=== PATIENT | male | born 1960 | race Caucasian/White ===

== ENCOUNTER → 2018-03-08 | Outpatient (CLI) | payer OTHER | END | disposition home or self-care (01) | LOC: CFH 10:27 | PROVIDERS: ATTEND Internal Medicine Cardiovascular Disease | DX: I10 Essential (primary) hypertension (principal); Z98.61 Coronary angioplasty status | CPT/HCPCS: 78452; 93017; 93306; A9502 ==

== ENCOUNTER 2018-09-23 05:31 | Inpatient (IN) | payer OTHER ==
[~2018-09-23] VITALS: Ht 172.7 cm; Wt 83.1 kg
[2018-09-23] MEDS ORDERED: SODIUM CHLORIDE FLUSH 10ML SYR IVF ONE (06:00)
[2018-09-23] MEDS ORDERED: SODIUM CHLORIDE 0.9% 1,000 ML IV SCH ×2 (06:00→16:06)
[2018-09-23] MEDS ORDERED: ASPIRIN 81 MG TABLET CHEW PO ONE (06:00)
[2018-09-23] MEDS ORDERED: ASPIRIN 81 MG TABLET CHEW ONE (06:03)
[2018-09-23 06:22] LABS: BASOPHILS # (AUTO) 0.04 x10^3/uL (0-0.1); BASOPHILS % (AUTO) 1 % (0-1); EOSINOPHILS # (AUTO) 0.31 x10^3/uL (0-0.4); EOSINOPHILS % (AUTO) 5 % (1-7); LYMPHOCYTES # (AUTO) 1.58 x10^3/uL (1-3.4); LYMPHOCYTES % (AUTO) 25 % (22-44); MD NO; MEAN CORPUSCULAR VOLUME 97.1 fL (81-97); MEAN PLATELET VOLUME 8.3 fL (7.4-10.4); MONOCYTES # (AUTO) 0.48 x10^3/uL (0.2-0.8); MONOCYTES % (AUTO) 8 % (2-9); NEUTROPHILS # (AUTO) 3.84 x10^3/uL (1.8-6.8); NEUTROPHILS % (AUTO) 62 % (42-75); PLATELET COUNT 222 x10^3/uL (130-400); RED BLOOD COUNT 5.07 x10^6/uL (4.38-5.82); RED CELL DISTRIBUTION WIDTH 13.7 % (9.4-14.8)
[2018-09-23 06:29] LABS: ALANINE AMINOTRANSFERASE 59 U/L (12-78); ANION GAP 6 mmol/L (5-15); CHLORIDE 110 mmol/L (98-107)
[2018-09-23 06:33] LABS: ALKALINE PHOSPHATASE 63 U/L (45-117); BILIRUBIN,TOTAL 0.5 mg/dL (0.2-1.0); CREATININE 1.51 mg/dL (0.7-1.3); TOTAL PROTEIN 7.1 g/dL (6.4-8.2)
[2018-09-23 06:34] LABS: TROPONIN I 0.463 ng/mL (0.000-0.045)
[2018-09-23] MEDS ORDERED: HEPARIN 5,000 UNITS/ML, 1ML ONE (06:44)
[2018-09-23] MEDS ORDERED: HEPARIN 25,000 UNITS/500ML PMX 500 ML ONE (06:44)
[2018-09-23] MEDS: HEPARIN 25,000 UNITS/500ML PMX 500 ML IV PRN ×2 (06:54→16:38)
[2018-09-23] MEDS ORDERED: HEPARIN 5,000 UNITS/ML, 1ML IV ONE (07:00)
[2018-09-23] MEDS ORDERED: LISI-170 PO (07:03)
[2018-09-23] MEDS ORDERED: ASPI-650 PO (07:03)
[2018-09-23] MEDS ORDERED: LEVO100T5 PO (07:03)
[2018-09-23] MEDS ORDERED: ATOR20TA PO (07:03)
[2018-09-23] MEDS ORDERED: VITA1CAP PO (07:03)
[2018-09-23] MEDS ORDERED: Metoprolol PO (07:03)
[2018-09-23 07:04] LABS: FREE T4 (FREE THYROXINE) 1.03 ng/dL (0.76-1.46)
[2018-09-23] MEDS ORDERED: morphine SULFATE 10 MG/ML, 1ML IVPush PRN (07:30)
[2018-09-23] MEDS ORDERED: NITROGLYCERIN 0.4 MG BOTTLE (25 TABS) SL PRN (07:30)
[2018-09-23] MEDS ORDERED: ONDANSETRON 2MG/ML, 2ML IVPush PRN (07:30)
[2018-09-23] MEDS ORDERED: hydrALAzine 20 MG/ML, 1ML IVPush PRN (07:30)
[2018-09-23] MEDS ORDERED: HEPARIN 5,000 UNITS/ML, 1ML IV PRN (07:30)
[2018-09-23] MEDS ORDERED: LORazepam 2 MG/ML, 1ML IVPush PRN (07:30)
[2018-09-23] MEDS: LEVOTHYROXINE 125 MCG TABLET PO SCH (07:38)
[2018-09-23] MEDS: ASPIRIN 81 MG TABLET EC PO SCH (07:38)
[2018-09-23 08:18] VITALS: BP 128/85
[2018-09-23] MEDS: METOPROLOL TARTRATE 25 MG TABLET PO SCH ×2 (08:20→20:38)
[2018-09-23] MEDS: LISINOPRIL 20 MG TABLET PO SCH ×2 (08:22→08:25)
[2018-09-23] MEDS ORDERED: FENTANYL PF 100 MCG/2ML ONE (14:31)
[2018-09-23] MEDS ORDERED: MIDAZOLAM 1 MG/ML, 5ML ONE (14:31)
[2018-09-23] MEDS ORDERED: VERAPAMIL 2.5 MG/ML, 2ML ONE (14:32)
[2018-09-23] MEDS ORDERED: LIDOCAINE 2%, 20ML ONE (14:32)
[2018-09-23] MEDS ORDERED: BIVALIRUDIN 250 MG ONE (14:32)
[2018-09-23 15:34] VITALS: BP 138/83
[2018-09-23 19:18] VITALS: BP 123/79
[2018-09-23] MEDS ORDERED: ACETAMINOPHEN 325 MG TABLET PO ONE (19:30)
[2018-09-23] MEDS: ATORVASTATIN 40 MG TABLET PO SCH (20:52)
[2018-09-24 02:00] VITALS: BP 114/71
[2018-09-24] MEDS: ASPIRIN 81 MG TABLET EC PO SCH (05:42)
[2018-09-24] MEDS: LEVOTHYROXINE 125 MCG TABLET PO SCH (05:42)
[2018-09-24 06:30] VITALS: BP 114/74
[2018-09-24 07:08] LABS: BASOPHILS # (AUTO) 0.06 x10^3/uL (0-0.1); BASOPHILS % (AUTO) 1 % (0-1); EOSINOPHILS # (AUTO) 0.23 x10^3/uL (0-0.4); EOSINOPHILS % (AUTO) 5 % (1-7); LYMPHOCYTES % (AUTO) 29 % (22-44); MD NO; MEAN CORPUSCULAR HGB CONC 33.4 g/dL (33.2-36.2); MEAN CORPUSCULAR VOLUME 95.9 fL (81-97); MEAN PLATELET VOLUME 8.3 fL (7.4-10.4); MONOCYTES # (AUTO) 0.37 x10^3/uL (0.2-0.8); MONOCYTES % (AUTO) 8 % (2-9); NEUTROPHILS # (AUTO) 2.72 x10^3/uL (1.8-6.8); NEUTROPHILS % (AUTO) 57 % (42-75); PLATELET COUNT 179 x10^3/uL (130-400); RED BLOOD COUNT 4.91 x10^6/uL (4.38-5.82); RED CELL DISTRIBUTION WIDTH 13.3 % (9.4-14.8)
[2018-09-24 07:20] LABS: ALANINE AMINOTRANSFERASE 47 U/L (12-78); ALBUMIN 3.3 g/dL (3.4-5.0); ANION GAP 6 mmol/L (5-15); CALCIUM 8.4 mg/dL (8.5-10.1); CHLORIDE 112 mmol/L (98-107)
[2018-09-24 07:24] LABS: ALKALINE PHOSPHATASE 51 U/L (45-117); CHOL/HDL RATIO 3.4; CHOLESTEROL, TOTAL 128 mg/dL (140-239); HDL CHOL % 30 % (26-37); HDL CHOLESTEROL (DIRECT) 38 mg/dL (40-60); LDL CHOLESTEROL,CALCULATED 65 mg/dL (54-169); LDL/HDL RATIO 1.7 (0.5-3.0); TRIGLYCERIDES 127 mg/dL (50-200); VLDL CHOLESTEROL 25 mg/dL (0-25)
[2018-09-24] MEDS: METOPROLOL TARTRATE 25 MG TABLET PO SCH ×2 (09:24→20:20)
[2018-09-24] MEDS: LISINOPRIL 20 MG TABLET PO SCH (09:24)
[2018-09-24] MEDS: SODIUM CHLORIDE 0.9% 1,000 ML IV SCH ×2 (10:57→20:20)
[2018-09-24] MEDS ORDERED: MIDAZOLAM 1 MG/ML, 5ML ONE (14:01)
[2018-09-24] MEDS ORDERED: TICAGRELOR 90 MG TABLET ONE (14:01)
[2018-09-24] MEDS ORDERED: FENTANYL PF 100 MCG/2ML ONE (14:01)
[2018-09-24] MEDS ORDERED: BIVALIRUDIN 250 MG ONE (14:02)
[2018-09-24] MEDS ORDERED: LIDOCAINE 1%, 20ML ONE (14:02)
[2018-09-24] MEDS ORDERED: VERAPAMIL 2.5 MG/ML, 2ML ONE (14:32)
[2018-09-24 14:39] VITALS: BP 118/72
[2018-09-24] MEDS ORDERED: SODIUM CHLORIDE 0.9% 1,000 ML IV SCH (15:17)
[2018-09-24] MEDS ORDERED: BIVALIRUDIN 250 MG in SODIUM CHLORIDE 0.9% 50 ML IV SCH (15:17)
[2018-09-24 19:24] VITALS: BP 148/82
[2018-09-24] MEDS: ATORVASTATIN 40 MG TABLET PO SCH (20:19)
[2018-09-24] MEDS: TICAGRELOR 90 MG TABLET PO SCH (20:19)
[2018-09-25 01:25] VITALS: BP 130/75
[2018-09-25 02:34] VITALS: BP 133/78
[2018-09-25] MEDS: LEVOTHYROXINE 125 MCG TABLET PO SCH (05:41)
[2018-09-25 05:50] LABS: ANION GAP 7 mmol/L (5-15); CALCIUM 8.7 mg/dL (8.5-10.1); CHLORIDE 113 mmol/L (98-107); CREATININE 1.34 mg/dL (0.7-1.3)
[2018-09-25 06:45] VITALS: BP 152/75
[2018-09-25] MEDS: METOPROLOL TARTRATE 25 MG TABLET PO SCH (08:02)
[2018-09-25] MEDS: LISINOPRIL 20 MG TABLET PO SCH (08:02)
[2018-09-25] MEDS: TICAGRELOR 90 MG TABLET PO SCH (08:02)
[2018-09-25] MEDS ORDERED: ASPIRIN 81 MG TABLET EC PO SCH (09:00)
[2018-09-25] MEDS ORDERED: TICA90TA PO (11:42)
[2018-09-25] MEDS ORDERED: ASPI81TA45 PO (11:42)
[2018-09-25] MEDS ORDERED: LISI-170 PO (11:42)
[2018-09-25] MEDS ORDERED: NITR0.4T28 SL (11:42)
[2018-09-25] MEDS ORDERED: ATOR40TA78 PO (11:42)
[2018-09-25] MEDS ORDERED: LEVO125T PO (11:42)
[2018-09-25] MEDS ORDERED: LISINOPRIL 20 MG TABLET PO SCH (21:00)
== END 2018-09-25 13:58 | disposition home or self-care (01) | DRG 247 ==
LOC: ED 06:24 → SUATTDRO 07:02 → EDIP 07:51 → 5SO 08:05 → DCLOUNGE 09-25 13:32
PROVIDERS: ADMIT Internal Medicine; ATTEND Internal Medicine
PROC: 4A023N7 Measurement of Cardiac Sampling and Pressure, Left Heart, Percutaneous Approach (ICD-10-PCS; 2018-09-23)
PROC: B2111ZZ Fluoroscopy of Multiple Coronary Arteries using Low Osmolar Contrast (ICD-10-PCS; 2018-09-23)
PROC: B2151ZZ Fluoroscopy of Left Heart using Low Osmolar Contrast (ICD-10-PCS; 2018-09-23)
PROC: 027034Z Dilation of Coronary Artery, One Artery with Drug-eluting Intraluminal Device, Percutaneous Approach (ICD-10-PCS; principal; 2018-09-24)
DX: I21.4 Non-ST elevation (NSTEMI) myocardial infarction (principal); E03.9 Hypothyroidism, unspecified; E78.5 Hyperlipidemia, unspecified; I10 Essential (primary) hypertension; I25.10 Atherosclerotic heart disease of native coronary artery without angina pectoris; Z86.73 Personal history of transient ischemic attack (TIA), and cerebral infarction without residual deficits; Z87.891 Personal history of nicotine dependence
CPT/HCPCS: 36415; 93454; 93458; 99285; C9600; J3490; 71045; 80048; 80053; 80061; 83735; 83880; 84100; 84439; 84443; 84484; 85025; 85379; 85520; 93005; 96374; 99156; 99157; C1760; C1769; C1894; G0378; J0583; J1644; J2250; J3010; C1725; C1874; C1887; J7030; Q9967

== ENCOUNTER 2018-10-15 07:11 | Inpatient (IN) | payer OTHER ==
[~2018-10-15] VITALS: Ht 172.7 cm; Wt 82.0 kg
[~2018-10-15 07:11] MED LIST: ASPI-650 PO; ASPI81TA45 PO; ATOR20TA PO; ATOR40TA78 PO; LEVO100T5 PO; LEVO125T PO; LISI-170 PO; Metoprolol PO; NITR0.4T28 SL; TICA90TA PO; VITA1CAP PO
[2018-10-15] MEDS ORDERED: SODIUM CHLORIDE FLUSH 10ML SYR IVF ONE (07:30)
[2018-10-15] MEDS ORDERED: LISI-170 PO (07:46)
--- NOTE | 2018-10-15 07:46 | NUR ---
PT AMBULATORY FROM [facility]. DESCRIBES WAKING THIS MORNING WITH A WARM FEELING IN HIS CHEST, +NAUSEA AND JELANI, PAIN IN HIS RIGHT FOOT. DENIES ANY SYMPTOMS AT THIS TIME. PT WITH HX OF OK X 4 W/STENTS MOST RECENT WAS IN AUGUST 2018. PT ALSO HAS HX OF BRAIN STEM CVA 2004 WITH RESIDUAL SPEECH STUTTER. PTS VSS BUT IS TREMMULOUS T/O AND DENIES ANY HX OF HAVE ISSUES W/ TREMMORS, STATES THE TREMMORS ARE NEW TODAY. PTS SON AT BEDSIDE AND CONFIRMS THAT NO TREMMORS HAVE BEEN NOTICED IN THE PAST. DR AZAR AT BEDSIDE, ASSESSMENT REVIEWED AND ORDERS REC'D
[2018-10-15] MEDS ORDERED: LORazepam 1MG TABLET ONE (07:53)
[2018-10-15] MEDS ORDERED: LORazepam 1MG TABLET PO ONE (08:00)
[2018-10-15 08:17] LABS: BASOPHILS # (AUTO) 0.06 x10^3/uL (0-0.1); BASOPHILS % (AUTO) 1 % (0-1); EOSINOPHILS # (AUTO) 0.12 x10^3/uL (0-0.4); EOSINOPHILS % (AUTO) 2 % (1-7); LYMPHOCYTES # (AUTO) 1.45 x10^3/uL (1-3.4); LYMPHOCYTES % (AUTO) 25 % (22-44); MD NO; MEAN CORPUSCULAR HEMOGLOBIN 31.8 pg (27.5-34.5); MEAN CORPUSCULAR HGB CONC 33.4 g/dL (33.2-36.2); MEAN CORPUSCULAR VOLUME 95.4 fL (81-97); MEAN PLATELET VOLUME 7.9 fL (7.4-10.4); MONOCYTES # (AUTO) 0.45 x10^3/uL (0.2-0.8); MONOCYTES % (AUTO) 8 % (2-9); NEUTROPHILS # (AUTO) 3.63 x10^3/uL (1.8-6.8); NEUTROPHILS % (AUTO) 64 % (42-75); PLATELET COUNT 258 x10^3/uL (130-400); RED BLOOD COUNT 5.54 x10^6/uL (4.38-5.82); RED CELL DISTRIBUTION WIDTH 12.7 % (9.4-14.8)
[2018-10-15 08:26] LABS: ALANINE AMINOTRANSFERASE 46 U/L (12-78); ALBUMIN 4.3 g/dL (3.4-5.0); ANION GAP 4 mmol/L (5-15); CALCIUM 9.4 mg/dL (8.5-10.1); CHLORIDE 111 mmol/L (98-107); CREATININE 1.42 mg/dL (0.7-1.3)
[2018-10-15 08:30] LABS: ALKALINE PHOSPHATASE 63 U/L (45-117); TOTAL PROTEIN 7.4 g/dL (6.4-8.2); TROPONIN I < 0.015 ng/mL (0.000-0.045)
--- NOTE | 2018-10-15 09:08 | NUR ---
i am assuming care of this pt from Sana (johnna) at this time. sbar report was exchanged at the bedside.
--- NOTE | 2018-10-15 09:52 | NUR ---
verbal sbar report exchanged w manuel (rn) on the tele floor. we will begin to prepare for transport at this time.
[2018-10-15] MEDS ORDERED: NITROGLYCERIN SINGLE TAB 0.4 MG SL PRN (10:00)
[2018-10-15] MEDS ORDERED: ACETAMINOPHEN 325 MG TABLET PO PRN (10:00)
[2018-10-15 10:31] VITALS: BP 134/89
[2018-10-15] MEDS: ASPIRIN 81 MG TABLET EC PO SCH (11:22)
[2018-10-15] MEDS: TICAGRELOR 90 MG TABLET PO SCH ×2 (11:22→21:16)
[2018-10-15] MEDS: RANOLAZINE 500 MG TAB.ER.12H PO SCH ×2 (11:22→21:16)
[2018-10-15] MEDS: ISOSORBIDE MONONITRATE ER 30 MG TABLET PO SCH (11:22)
[2018-10-15] MEDS ORDERED: SODIUM CHLORIDE 0.9%, 500ML IVBOLUS ONE (12:30)
[2018-10-15 13:50] VITALS: BP 129/71
[2018-10-15 15:17] LABS: TROPONIN I < 0.015 ng/mL (0.000-0.045)
[2018-10-15] MEDS: HEPARIN 5,000 UNITS/ML, 1ML SQ SCH (18:00)
[2018-10-15] MEDS ORDERED: SODIUM CHLORIDE 0.9% 100 ML IV SCH (18:30)
[2018-10-15] MEDS: SODIUM CHLORIDE 0.9% 1,000 ML IV SCH (19:07)
[2018-10-15 20:09] VITALS: BP 113/68
[2018-10-15] MEDS ORDERED: TICAGRELOR 90 MG TABLET PO SCH (21:00)
[2018-10-15] MEDS ORDERED: ATORVASTATIN 40 MG TABLET PO SCH (21:00)
[2018-10-15] MEDS: LISINOPRIL 20 MG TABLET PO SCH (21:16)
[2018-10-16] MEDS: HEPARIN 5,000 UNITS/ML, 1ML SQ SCH ×2 (01:51→10:01)
[2018-10-16 02:01] VITALS: BP 102/61
[2018-10-16 05:43] LABS: BASOPHILS # (AUTO) 0.06 x10^3/uL (0-0.1); BASOPHILS % (AUTO) 1 % (0-1); EOSINOPHILS % (AUTO) 3 % (1-7); LYMPHOCYTES # (AUTO) 1.17 x10^3/uL (1-3.4); LYMPHOCYTES % (AUTO) 18 % (22-44); MD NO; MEAN CORPUSCULAR HEMOGLOBIN 31.9 pg (27.5-34.5); MEAN CORPUSCULAR HGB CONC 33.1 g/dL (33.2-36.2); MEAN CORPUSCULAR VOLUME 96.3 fL (81-97); MONOCYTES % (AUTO) 6 % (2-9); NEUTROPHILS # (AUTO) 4.77 x10^3/uL (1.8-6.8); NEUTROPHILS % (AUTO) 72 % (42-75); PLATELET COUNT 241 x10^3/uL (130-400); RED BLOOD COUNT 5.08 x10^6/uL (4.38-5.82); RED CELL DISTRIBUTION WIDTH 13.1 % (9.4-14.8)
[2018-10-16] MEDS ORDERED: LEVOTHYROXINE 125 MCG TABLET PO SCH (06:00)
[2018-10-16 06:12] LABS: ALANINE AMINOTRANSFERASE 35 U/L (12-78); ALBUMIN 3.5 g/dL (3.4-5.0); ANION GAP 5 mmol/L (5-15); CALCIUM 8.7 mg/dL (8.5-10.1); CHLORIDE 111 mmol/L (98-107); CREATININE 1.43 mg/dL (0.7-1.3)
[2018-10-16 06:22] LABS: ALKALINE PHOSPHATASE 54 U/L (45-117); BILIRUBIN,TOTAL 1.7 mg/dL (0.2-1.0); TOTAL PROTEIN 6.3 g/dL (6.4-8.2)
[2018-10-16 07:23] VITALS: BP 121/71
[2018-10-16] MEDS ORDERED: ASPIRIN 81 MG TABLET EC PO SCH (09:00)
[2018-10-16] MEDS ORDERED: MULTIVITS,STRESS FORMULA 1 TABLET PO SCH (09:00)
[2018-10-16 09:59] VITALS: BP 126/83
[2018-10-16] MEDS: TICAGRELOR 90 MG TABLET PO SCH (10:00)
[2018-10-16] MEDS: SODIUM CHLORIDE 0.9% 1,000 ML IV SCH (10:00)
[2018-10-16] MEDS: ASPIRIN 81 MG TABLET EC PO SCH (10:00)
[2018-10-16] MEDS: LISINOPRIL 20 MG TABLET PO SCH (10:01)
[2018-10-16] MEDS: ISOSORBIDE MONONITRATE ER 30 MG TABLET PO SCH (10:01)
[2018-10-16] MEDS: RANOLAZINE 500 MG TAB.ER.12H PO SCH (10:01)
[2018-10-16 12:35] VITALS: BP 131/81
[2018-10-16 13:24] VITALS: BP 104/65
[2018-10-16] MEDS ORDERED: RANO500T2 PO (13:27)
[2018-10-16] MEDS ORDERED: SERT50TA PO (13:27)
[2018-10-16] MEDS ORDERED: ISOS30TA8 PO (13:27)
== END 2018-10-16 15:08 | disposition home or self-care (01) | DRG 313 ==
LOC: ED 07:33 → EDIP 09:08 → 5SO 10:36 → DCLOUNGE 10-16 15:00
PROVIDERS: ADMIT Internal Medicine; ATTEND Internal Medicine
DX: R07.89 Other chest pain (principal); G93.40 Encephalopathy, unspecified; E03.9 Hypothyroidism, unspecified; E78.5 Hyperlipidemia, unspecified; I12.9 Hypertensive chronic kidney disease with stage 1 through stage 4 chronic kidney disease, or unspecified chronic kidney disease; I25.10 Atherosclerotic heart disease of native coronary artery without angina pectoris; N18.3 Chronic kidney disease, stage 3 (moderate); Z79.899 Other long term (current) drug therapy; I25.2 Old myocardial infarction; Z86.73 Personal history of transient ischemic attack (TIA), and cerebral infarction without residual deficits; Z95.5 Presence of coronary angioplasty implant and graft; Z88.1 Allergy status to other antibiotic agents
CPT/HCPCS: 36415; 70450; 70551; 71045; 80053; 83735; 84100; 84443; 84484; 85025; 93005; 93306; 99285; G0378; J1644; 92523-GN; J7030; J7040

== ENCOUNTER 2021-01-20 08:09 | Emergency (ER) | payer SELFPAY ==
[~2021-01-20] VITALS: Ht 172.7 cm; Wt 79.0 kg
[2021-01-20 12:24] VITALS: BP 149/96
== END 2021-01-20 12:41 | disposition home or self-care (01) ==
LOC: ED 08:57
DX: R06.00 Dyspnea, unspecified (principal); I10 Essential (primary) hypertension; I25.10 Atherosclerotic heart disease of native coronary artery without angina pectoris; I25.2 Old myocardial infarction
CPT/HCPCS: 36415; 71045; 71275; 80053; 83880; 84484; 85025; 85379; 93005; 99285; Q9967